=== PATIENT | male | born 1960 | race Caucasian/White ===

== ENCOUNTER 2020-06-06 08:10 | Inpatient (IN) ==
[2020-06-06] MEDS ORDERED: MoRPHine SULFATE 4 MG/ML 1 ML CARP\\VIAL IV STA ×2 (08:28→08:47)
[2020-06-06] MEDS ORDERED: ONDANSETRON INJ 2 MG/ML 2 ML VIAL IV STA (08:28)
[2020-06-06] MEDS ORDERED: SODIUM CHLORIDE 0.9% 1000ML 1,000 ML IV SCH (08:30)
--- NOTE | 2020-06-06 08:36 | Emergency Department Note ---
History of Present Illness General Chief complaint: Flank Pain Stated complaint: SEVERE ABD PAIN Time Seen by Provider: 06/06/20 08:19 History of Present Illness Maximum Pain Intensity: 9 This is a 59-year-old male that presents to the emergency department via private vehicle with complaints of "severe abdominal pain". The patient notes that around 7:15 AM he developed some discomfort to the left flank/back region. Current discomfort 7/10. It seems to wax and wane. He notes he cannot find a comfortable position. He notes a history of kidney stones about 22 years ago that passed spontaneously. No trauma or injury. No chest pain or shortness of breath. No trouble urinating. Home Medications Medication Instructions Recorded Confirmed Type aspirin [Aspirin Low Dose] 81 mg PO QAM 03/27/19 06/06/20 History atenolol 50 mg PO HS 03/27/19 06/06/20 History omega 3-hre-shp-fish oil [Fish Oil] 2 cap PO QAM 03/27/19 06/06/20 History acetaminophen [Tylenol Extra 1,000 mg PO Q6H PRN 06/06/20 06/06/20 History Strength] Allergies Allergy/AdvReac Type Severity Reaction Status Date / Time No Known Allergies Allergy Verified 06/06/20 08:45 Past Med/Surg History Medical History History of colon polyps Hypertension Surgical History History of cholecystectomy History of colonoscopy History of repair of anterior cruciate ligament of left knee History of wisdom tooth extraction Hx of vasectomy Family History Other Brain cancer Lung disease No family history of adverse response to anesthesia Social History Smoking Status: Never smoker Second Hand Exposure: Yes (mom smoked); Hx Alcohol Use: Yes Alcohol type: beer Hx Substance Use: No Preferred Language: Kiswahili Communication Ability: Effective Electrical Technician Required: No Beliefs That Will Affect Care: None Current Living Situation: Spouse Current Living Situation Comment: Lives with and son Other Information That Helps Us Care for You: No Feels Safe at Home: Yes Safety Concerns: Feels Safe At This Time Assistive Devices: None Review of Systems A total of 10 systems reviewed and were otherwise negative Physical Exam Vital Signs Vital Signs - 24 hr 06/06/20 08:16 06/06/20 08:49 06/06/20 10:34 Temperature 36.5 C Temperature Source Oral Pulse Rate 56 L Pulse Rate [Left Finger] 66 69 Respiratory Rate 20 16 16 Respiratory Effort / Characteristics Non-Labored Respiratory Depth Normal Blood Pressure 150/95 H Blood Pressure [Left Arm] 157/81 H 146/90 H Blood Pressure Mean 113 Blood Pressure Mean [Left Arm] 106 108 Pulse Oximetry 99 100 98 Oxygen Delivery Method Room Air Room Air Room Air Sepsis Recent Fever Within 48 Hours No Sepsis New/Unexplained Change in Mental Status N/A Sepsis Action Taken by Nursing No Action Required 06/06/20 11:57 Temperature Temperature Source Pulse Rate Pulse Rate [Left Finger] 91 H Respiratory Rate 18 Respiratory Effort / Characteristics Respiratory Depth Blood Pressure Blood Pressure [Left Arm] 151/95 H Blood Pressure Mean Blood Pressure Mean [Left Arm] 113 Pulse Oximetry 95 Oxygen Delivery Method Room Air Sepsis Recent Fever Within 48 Hours Sepsis New/Unexplained Change in Mental Status Sepsis Action Taken by Nursing VITAL SIGNS - Vital signs and nursing notes were reviewed. Stable and afebrile. GENERAL - 59-year-old male appearing his stated age who is in no acute distress but appears to be in pain. Communicates well with provider and answers questions appropriately. SKIN - Without rashes. LUNGS - Chest wall symmetric without accessory muscle use, intercostals retractions, or central cyanosis. Normal vesicular breath sounds CTA B/L. No wheezes, rales, or rhonchi appreciated. CARDIAC - RRR with S1/S2. No murmur, rubs, or gallops appreciated. ABDOMEN - Abdominal contour normal without pulsations or visible masses. BS normoactive all four quadrants. No tenderness, palpable masses, hepatosplenomegaly, or ascites noted. EXTREMITIES - No clubbing or peripheral cyanosis. No pretibial edema present. +5/5 strength noted in UE/LE bilaterally. NEUROLOGIC - Cranial nerves II through XII grossly intact. PSYCH - A&O,3 and cooperates fully with examiner. Pt is very pleasant and interacts well with examiner. Course Administered Medications Lactated Ringer's (Lr) 1,000 mls @ 150 mls/hr IV .Q6H40M REYNA Stop: 07/06/20 16:14 Last Admin: 06/06/20 16:34 Dose: 150 mls/hr Documented by: [id number] Discontinued Medications Sodium Chloride (Nss 1000ml) 1,000 mls @ 999 mls/hr IV .Q1H1M REYNA Stop: 06/06/20 09:30 Last Infusion: 06/06/20 10:24 Dose: 0 mls/hr Documented by: [id number] Admin: 06/06/20 08:34 Dose: 999 mls/hr Documented by: [id number] Sodium Chloride (Nss 1000ml) 1,000 mls @ 999 mls/hr IV .Q1H1M ONE Stop: 06/06/20 13:32 Last Infusion: 06/06/20 13:55 Dose: 0 mls/hr Documented by: [id number] Admin: 06/06/20 12:53 Dose: 999 mls/hr Documented by: [id number] Ketorolac Tromethamine (Ketorolac Tromethamine 15 Mg/Ml Vial) 15 mg IV NOW STA Stop: 06/06/20 08:48 Last Admin: 06/06/20 08:50 Dose: 15 mg Documented by: [id number] Ketorolac Tromethamine (Ketorolac Tromethamine 15 Mg/Ml Vial) 15 mg IV NOW STA Stop: 06/06/20 12:51 Last Admin: 06/06/20 16:03 Dose: Not Given Documented by: [id number] Morphine Sulfate (Morphine Sulfate 4 Mg/Ml 1 Ml Carp\\Vial) 4 mg IV NOW STA Stop: 06/06/20 08:29 Last Admin: 06/06/20 08:35 Dose: 4 mg Documented by: [id number] Morphine Sulfate (Morphine Sulfate 4 Mg/Ml 1 Ml Carp\\Vial) 4 mg IV NOW STA Stop: 06/06/20 08:48 Last Admin: 06/06/20 08:50 Dose: 4 mg Documented by: [id number] Morphine Sulfate (Morphine Sulfate 4 Mg/Ml 1 Ml Carp\\Vial) 4 mg IV Q30M PRN PRN Reason: pain Stop: 06/20/20 11:08 Last Admin: 06/06/20 11:23 Dose: 4 mg Documented by: [id number] Ondansetron HCl (Ondansetron Inj 2 Mg/Ml 2 Ml Vial) 4 mg IV NOW STA Stop: 06/06/20 08:29 Last Admin: 06/06/20 08:34 Dose: 4 mg Documented by: [id number] Medical Decision Making Laboratory Data Result diagrams: 06/06/20 08:25 06/06/20 08:25 Lab Results 06/06/20 06/06/20 06/06/20 Range/Units 08:25 08:25 10:01 WBC 6.43 (4.8-10.8) K/uL RBC 5.18 (4.7-6.1) M/uL Hgb 16.2 (14.0-18.0) g/dL Hct 46.7 (42-52) % MCV 90.2 (80-100) fL MCH 31.3 (25-34) pg MCHC 34.7 (32-36) g/dL RDW Std Deviation 46.1 (36.4-46.3) fL RDW Coeff of Prem 13.9 (11.5-14.5) % Plt Count 188 (130-400) K/uL MPV 9.7 (7.4-10.4) fL Immature Gran % (Auto) 0.2 % Neut % (Auto) 60.1 % Lymph % (Auto) 25.8 % Cloud % (Auto) 11.7 % Eos % (Auto) 2.0 % Baso % (Auto) 0.2 % Neut # (Auto) 3.87 (1.4-6.5) K/uL Lymph # (Auto) 1.66 (1.2-3.4) K/uL Cloud # (Auto) 0.75 H (0.11-0.59) K/uL Eos # (Auto) 0.13 (0-0.5) K/uL Baso # (Auto) 0.01 (0-0.2) K/uL Immature Gran # (Auto) 0.01 (0.00-0.02) K/uL Sodium 141 (136-145) mmol/L Potassium 4.0 (3.5-5.1) mmol/L Chloride 106 (98-107) mmol/L Carbon Dioxide 29 (21-32) mmol/L Anion Gap 6.0 (3-11) BUN 14 (7-18) mg/dl Creatinine 1.33 (0.6-1.4) mg/dl Est Cr Clr Drug Dosing 70.4 ml/min Est GFR ( Amer) 67.8 Est GFR (Non-Af Amer) 58.5 BUN/Creatinine Ratio 10.8 (10-20) Glucose 147 H (70-99) mg/dl Calcium 8.9 (8.5-10.1) mg/dl Total Bilirubin 1.2 H (0.2-1) mg/dl AST 71 H (15-37) U/L ALT 55 (12-78) U/L Alkaline Phosphatase 60 (45-117) U/L Total Protein 7.5 (6.4-8.2) gm/dl Albumin 4.0 (3.4-5.0) gm/dl Globulin 3.5 (2.5-4.0) gm/dl Albumin/Globulin Ratio 1.1 (0.9-2) Lipase 123 (73-393) U/L Urine Color Dark Yellow Urine Appearance Cloudy A (Clear) Urine pH 5.0 (4.5-7.5) Ur Specific [place] 1.023 (1.000-1.030) Urine Protein Trace H (Negative) Urine Glucose (UA) Negative (Negative) Urine Ketones Trace H (Negative) Urine Blood 3+ H (Negative) Urine Nitrite Negative (Negative) Urine Bilirubin Negative (Negative) Urine Urobilinogen Negative (Negative) Ur Leukocyte Esterase Negative (Negative) Urine WBC (Auto) 1-5 (0-5) /hpf Urine RBC (Auto) >30 H (0-4) /hpf U Hyaline Cast (Auto) 1-5 (0-5) /lpf U Epithel Cells (Auto) 5-10 H (0-5) /lpf Urine Bacteria (Auto) Negative (Negative) Ur Renal Epithelial Cell 0-5 (0-5) /lpf Urine Mucus Present A (None Prsent) Urine Yeast Not Reportable Imaging Data Radiologist's Impression: ABDOMEN AND PELVIS CT WITHOUT CONTRAST CT DOSE: 574.61 mGy.cm HISTORY: Acute low back and left-sided flank pain L back/flank pain TECHNIQUE: Multiaxial CT images of the abdomen and pelvis were performed without contrast. A dose lowering technique was utilized adhering to the principles of ALARA. COMPARISON STUDY: None. FINDINGS: Minimal subsegmental bibasilar atelectasis. There is no pneumatosis or pneumoperitoneum. Inferior cardiac chambers are unremarkable. The unenhanced spleen, pancreas, adrenal glands and liver appear unremarkable. The gallbladder appears to be surgically absent. 1.3 cm hypodensity of the anterior interpolar right kidney is suggestive of a probable cyst. 1.4 cm mildly complex cyst of the inferior pole right kidney. 2 mm nonobstructing calculus of the superior pole right kidney. Punctate nonobstructing calculus of the superior pole left kidney. There is mild to moderate left-sided hydroureteronephrosis secondary to an obstructing 5 x 4 x 7 mm calculus of the proximal left ureter at the level of the inferior endplate of L3. Prostamegaly. Partial distention of the urinary bladder. No abdominal aortic aneurysm or adenopathy. No bowel obstruction or bowel wall thickening. Terminal ileum and appendix are unremarkable. No ascites or mesenteric inflammation. Unremarkable soft tissues. No acute fracture. Transitional lumbosacral anatomy. IMPRESSION: 1. Mild to moderate left-sided hydroureteronephrosis secondary to a 5 x 4 x 7 mm calculus of the proximal left ureter. 2. Nonobstructing bilateral nephrolithiasis. 3. No bowel obstruction or bowel wall thickening. ACT 112: Negative or not required by law. The above report was generated using voice recognition software. It may contain grammatical, syntax or spelling errors. Electronically signed by: Ishaan Turk M.D. 06/06/2020 9:36 AM MDM Narrative Patient was seen and evaluated as above in room A11. Review was performed of nursing notes and vital signs. After obtaining a thorough history and physical examination the above work up was performed. He presents to us today with atraumatic left flank pain in the setting of kidney stone history x1. Patient has stable vital signs. He does appear to be in pain. IV access was established. Labs were drawn. No leukocytosis or anemia. No emergent metabolic disturbance. Mild elevation of T bili 1.2, AST 71 with glucose 147. Urinalysis reveals what is likely contaminated sample without evidence of infection. CT scan of the abdomen pelvis reveals a mild to moderate left-sided hydroureteronephrosis secondary to a 5 x 4 x 7 mm calculus of the proximal left ureter. Patient has required several rounds of IV analgesics here and did receive IV antiemetics and IV fluids. Options of care were then discussed with the patient. Patient preferred to be inpatient noting his persistence of discomfort which I believe certainly is reasonable as he has required multiple rounds of IV pain medication. Case discussed with the hospitalist. Please refer to further documentation regarding his stay. I did review the incidentals of the CT scan with the patient. While in the department, I personally r eevaluated the patient several times. I did speak with the patient's via phone after obtaining consent as she did call in to the emergency department. I was notified of this and then called her back. GCS: 15 In the evaluation and treatment of this patient the following differential diagnoses were entertained: Fracture, dislocation, subluxation, contusion, ureteral calculi, renal calculi, obstruction, UTI, pyelonephritis, among others. Impression & Plan Hydronephrosis with renal calculous obstruction, Renal colic on left side, Ureterolithiasis Discharge Plan Visit Data Chief Complaint: Flank Pain Stated Complaint: SEVERE ABD PAIN ED Provider: Юлия Pillai ED Midlevel Provider: Brice Cabrales Discharge Problem: Hydronephrosis with renal calculous obstruction, Renal colic on left side, Ureterolithiasis Patient Disposition: Admitted As Inpatient Discharge Instructions Interventions: ED Discharge Assessment Last Done: 06/06/20 16:05
[2020-06-06 08:46] LABS: Basophils # (auto) 0.01 K/uL (0-0.2); Basophils % (auto) 0.2 %; Eosinophils # (auto) 0.13 K/uL (0-0.5); Hematocrit (blood only) 46.7 % (42-52); Hemoglobin 16.2 g/dL (14.0-18.0); Immature Granulocytes # (auto) 0.01 K/uL (0.00-0.02); Immature Granulocytes % (auto) 0.2 %; Lymphocytes # (auto) 1.66 K/uL (1.2-3.4); Lymphocytes % (auto) 25.8 %; Mean Corpuscular Hemoglobin 31.3 pg (25-34); Mean Corpuscular Hgb Conc 34.7 g/dL (32-36); Mean Corpuscular Volume 90.2 fL (80-100); Mean Platelet Volume 9.7 fL (7.4-10.4); Monocytes # (auto) 0.75 K/uL (0.11-0.59); Monocytes % (auto) 11.7 %; Neutrophils # (auto) 3.87 K/uL (1.4-6.5); Neutrophils % (auto) 60.1 %; Platelet Count 188 K/uL (130-400); RDW Coefficient of Variation 13.9 % (11.5-14.5); RDW Standard Deviation 46.1 fL (36.4-46.3); Red Blood Count 5.18 M/uL (4.7-6.1); White Blood Count 6.43 K/uL (4.8-10.8)
[2020-06-06] MEDS ORDERED: KETOROLAC TROMETHAMINE 15 MG/ML VIAL IV STA ×2 (08:47→12:50)
[2020-06-06 09:28] LABS: BUN Creatinine Ratio 10.8 (10-20); Calcium 8.9 mg/dl (8.5-10.1); Creatinine Clr Calc Pharmacy 70.4 ml/min; Est GFR (African American) 67.8; Est GFR (Non-African American) 58.5
--- NOTE | 2020-06-06 09:38 | CT Scan Report ---
ABDOMEN AND PELVIS CT WITHOUT CONTRAST CT DOSE: 574.61 mGy.cm HISTORY: Acute low back and left-sided flank pain L back/flank pain TECHNIQUE: Multiaxial CT images of the abdomen and pelvis were performed without contrast. A dose lo wering technique was utilized adhering to the principles of ALARA. COMPARISON STUDY: None. FINDINGS: Minimal subsegmental bibasilar atelectasis. There is no pneumatosis or pneumoperitoneum. In ferior cardiac chambers are unremarkable. The unenhanced spleen, pancreas, adrenal glands and liver a ppear unremarkable. The gallbladder appears to be surgically absent. 1.3 cm hypodensity of the anterior interpolar right kidney is suggestive of a probable cyst. 1.4 cm m ildly complex cyst of the inferior pole right kidney. 2 mm nonobstructing calculus of the superior po le right kidney. Punctate nonobstructing calculus of the superior pole left kidney. There is mild to moderate left-sided hydroureteronephrosis secondary to an obstructing 5 x 4 x 7 mm calculus of the pr oximal left ureter at the level of the inferior endplate of L3. Prostamegaly. Partial distention of t he urinary bladder. No abdominal aortic aneurysm or adenopathy. No bowel obstruction or bowel wall thickening. Terminal ileum and appendix are unremarkable. No ascit es or mesenteric inflammation. Unremarkable soft tissues. No acute fracture. Transitional lumbosacral anatomy. IMPRESSION: 1. Mild to moderate left-sided hydroureteronephrosis secondary to a 5 x 4 x 7 mm calculus of the prox imal left ureter. 2. Nonobstructing bilateral nephrolithiasis. 3. No bowel obstruction or bowel wall thickening. ACT 112: Negative or not required by law. The above report was generated using voice recognition software. It may contain grammatical, syntax o r spelling errors. Electronically signed by: Ishaan Turk M.D. 06/06/2020 9:36 AM
[2020-06-06 09:50] LABS: Albumin Globulin Ratio 1.1 (0.9-2); Bilirubin,Total 1.2 mg/dl (0.2-1); Globulin 3.5 gm/dl (2.5-4.0); Total Protein 7.5 gm/dl (6.4-8.2)
[2020-06-06 10:34] LABS: Appearance Urine Cloudy (Clear); Bacteria Urine Automated Negative (Negative); Bilirubin Urine Negative (Negative); Blood Urine 3+ (Negative); Color Urine Dark Yellow; Glucose Urine UA Negative (Negative); Ketones Urine Trace (Negative); Leukocyte Esterase Urine Negative (Negative); Nitrite Urine Negative (Negative); Protein Urine Trace (Negative); Specific Gravity Urine 1.023 (1.000-1.030); Urobilinogen Urine Negative (Negative)
[2020-06-06 11:05] LABS: Mucus Urine Present (None Prsent); RBC Urine Automated >30 /hpf (0-4); Renal Epithelial Cells Urine 0-5 /lpf (0-5)
[2020-06-06] MEDS ORDERED: MoRPHine SULFATE 4 MG/ML 1 ML CARP\\VIAL IV PRN (11:09)
[2020-06-06] MEDS ORDERED: SODIUM CHLORIDE 0.9% 1000ML 1,000 ML IV ONE (12:32)
--- NOTE | 2020-06-06 12:36 | History & Physical Report ---
Date of Service June 06, 2020 Assessment & Plan (1) Ureterolithiasis: NSS 1L bolus given in ER, additional 1L bolus now then LR @ 150ml/hr Strain urine and send any stones for analysis (2) Renal colic on left side: Acetaminophen first-line, Toradol second line, Dilaudid third line as needed (3) Hydronephrosis with renal calculous obstruction: Clear liquid diet, if stable and no nausea can advance diet to full for dinner NPO at midnight with XR KUB in AM No indication for antibiotics at present time given urinalysis without infection, no WBC, no fevers. Consult urology - informed Dr aCrr (4) Hypertension: Continue atenolol 50 mg p.o. at bedtime Admission and Anticipated Discharge Date Admission Date: 06/06/2020 History of Present Illness Primary Care Provider: Brian Kaur Rosemarie 59 year old who presents to the ER with left-sided flank pain. Symptoms started at 7 AM today, initially with slight twinge but progressively getting worse to severity 10/10 at worst while in the emergency room. After 12 mg morphine and 15 mg Toradol he is currently pain-free for the last 20 minutes. Although he is found his pain returning after approximately 5 to 10 minutes after prior morphine. He reports associated chills with his pain earlier this morning. No objective fevers. No dysuria. He has a history of a kidney stone 22 years ago which was treated conservatively and passed spontaneously. Prior kidney stone 22 years ago. [address] on and Sunday so thinks he may have got somewhat dehydrated. Renal colic pain started this morning at 7am. Initially a twinge but quickly progressively got worse. Severity 10/10 at worse while in the ER, currently pain free after last morphine dose. In the ER CT abdomen/pelvis without IV contrast was concerning for left-sided hydroureteronephrosis secondary to a 5 x 4 x 7 mm calculus in the proximal left ureter. He is referred to medicine for admission ongoing management of renal colic pain and obstructing ureterolithiasis. Allergies Allergy/AdvReac Type Severity Reaction Status Date / Time No Known Allergies Allergy Verified 06/06/20 08:45 Home Medications Medication Instructions Recorded Confirmed Type aspirin [Aspirin Low Dose] 81 mg PO QAM 03/27/19 06/06/20 History atenolol 50 mg PO HS 03/27/19 06/06/20 History omega 8-qjo-iry-fish oil [Fish Oil] 2 cap PO QAM 03/27/19 06/06/20 History acetaminophen [Tylenol Extra 1,000 mg PO Q6H PRN 06/06/20 06/06/20 History Strength] Past Med/Surg History Medical History History of colon polyps Hypertension Surgical History History of cholecystectomy History of colonoscopy History of repair of anterior cruciate ligament of left knee History of wisdom tooth extraction Hx of vasectomy Family History Other Brain cancer Lung disease No family history of adverse response to anesthesia Social History Smoking Status: Never smoker Second Hand Exposure: Yes (mom smoked); Hx Alcohol Use: Yes Alcohol type: beer Hx Substance Use: No Preferred Language: [place] Island[place] Communication Ability: Effective Crack Off Person Required: No Beliefs That Will Affect Care: None Current Living Situation: Spouse and Family Current Living Situation Comment: Lives with and son Feels Safe at Home: Yes Assistive Devices: Glasses Review of Systems Review of Systems: All systems reviewed & are unremarkable except as noted in HPI & below Physical Exam Constitutional: well developed and well nourished; no acute distress Eyes: + anicteric sclerae; normal pupil size ENMT: external ear and nose normal, oropharynx normal Neck: trachea midline Respiratory: normal respiratory effort, lungs clear to auscultation Cardiovascular: RRR, no murmur, no edema Gastrointestinal (Abdomen): normal bowel sounds, soft, nontender, no hepatosplenomegaly Musculoskeletal: no cyanosis or clubbing, extremities motor strength 5/5 Skin: no rashes, warm and dry Neurologic: moves all extremities and awake; no focal motor deficits and not confused Psychiatric: A+Ox3, euthymic affect Genitourinary: + CVA tenderness (Left) Results & Data Results & Data ([facility]) Vital Signs (Past 12 Hours) Vital Signs Temp Pulse Pulse Resp BP BP Pulse Ox 06/06/20 11:57 91 H 18 151/95 H 95 06/06/20 10:34 69 16 146/90 H 98 06/06/20 08:49 66 16 157/81 H 100 06/06/20 08:16 36.5 C 56 L 20 150/95 H 99 Diagnostic Findings ABDOMEN AND PELVIS CT WITHOUT CONTRAST IMPRESSION: 1. Mild to moderate left-sided hydroureteronephrosis secondary to a 5 x 4 x 7 mm calculus of the proximal left ureter. 2. Nonobstructing bilateral nephrolithiasis. 3. No bowel obstruction or bowel wall thickening. Medications Administered ER medications given: NSS 1 L bolus Morphine 4 mg IV x3 Ondansetron 4 mg IV Toradol 50 mg IV Code Status & VTE Plan Code Status Full VTE Prophylaxis Plan VTE Prophylaxis will be ordered: No Reason for no VTE drug order: Treatment not indicated Reason for no VTE mechanical prophylaxis: Treatment not indicated PG Care Time/CCT Total # of Minutes Spent Total Time Spent with Patient: Total time spent is greater than 50% in coordination of care (as documented) at patient's floor/unit and/or counseling patient: Coding Level of Care Code 70765 Initial Inpt Care Lvl 2 Diagnoses Ureterolithiasis N20.1 Renal colic on left side N23 Hydronephrosis with renal calculous obstruction N13.2 Hypertension I10
[2020-06-06] MEDS ORDERED: HYDROmorphone INJ 1 MG/ML SYRINGE IV PRN (16:15)
[2020-06-06] MEDS ORDERED: ONDANSETRON INJ 2 MG/ML 2 ML VIAL IV PRN (16:15)
[2020-06-06] MEDS ORDERED: ACETAMINOPHEN 325 MG TAB PO PRN (16:15)
[2020-06-06] MEDS ORDERED: HYDROmorphone INJ 0.5 MG/0.5 ML SYR IV PRN (16:15)
[2020-06-06] MEDS: LACTATED RINGER'S 1,000 ML IV SCH ×2 (16:34→23:11)
[2020-06-06] MEDS: KETOROLAC 30 MG/ML VIAL IV PRN ×2 (17:11→23:09)
[2020-06-06] MEDS: ATENOLOL 50 MG TABLET PO SCH (20:20)
[2020-06-06] MEDS: TAMSULOSIN HCL 0.4 MG CAP PO SCH (20:20)
[2020-06-07] MEDS ORDERED: CIPROFLOXACIN / D5W 400 MG/200 ML BAG IV SCH (06:00)
[2020-06-07] MEDS: LACTATED RINGER'S 1,000 ML IV SCH ×3 (06:01→20:24)
[2020-06-07 06:32] LABS: Eosinophils # (auto) 0.04 K/uL (0-0.5); Eosinophils % (auto) 0.4 %; Hematocrit (blood only) 39.1 % (42-52); Hemoglobin 13.5 g/dL (14.0-18.0); Immature Granulocytes # (auto) 0.01 K/uL (0.00-0.02); Immature Granulocytes % (auto) 0.1 %; Lymphocytes # (auto) 1.32 K/uL (1.2-3.4); Lymphocytes % (auto) 13.8 %; Mean Corpuscular Hemoglobin 31.2 pg (25-34); Mean Corpuscular Hgb Conc 34.5 g/dL (32-36); Mean Corpuscular Volume 90.3 fL (80-100); Mean Platelet Volume 9.8 fL (7.4-10.4); Monocytes % (auto) 14.6 %; Neutrophils # (auto) 6.83 K/uL (1.4-6.5); Neutrophils % (auto) 71.1 %; Platelet Count 152 K/uL (130-400); RDW Coefficient of Variation 14.2 % (11.5-14.5); RDW Standard Deviation 47.7 fL (36.4-46.3); Red Blood Count 4.33 M/uL (4.7-6.1)
[2020-06-07 06:55] LABS: BUN Creatinine Ratio 11.4 (10-20); Calcium 7.9 mg/dl (8.5-10.1); Creatinine Clr Calc Pharmacy 67.4 ml/min; Est GFR (African American) 64.3; Est GFR (Non-African American) 55.5; Potassium 3.8 mmol/L (3.5-5.1)
[2020-06-07] MEDS ORDERED: KETOROLAC TROMETHAMINE 15 MG/ML VIAL IV PRN (07:45)
--- NOTE | 2020-06-07 07:58 | Urology Consultation ---
Date of Consultation June 07, 2020 Assessment & Plan (1) Renal colic on left side: (2) Ureterolithiasis: 59 year-old male patient, with past medical history of hypertension and elevated PSA, admitted to hospital with intractable left flank pain secondary to obstructing 7 mm left proximal ureteral calculus. -Patient afebrile. -Urine culture pending. -Keep NPO. -Continue to strain urine. -KUB this morning without visualization of stone. Findings reviewed with Dr. Carr. Given his intractable left flank pain in the context of an obstructing 7 mm left proximal ureteral calculus, will proceed with OR for cystoscopy, left retrograde pyelogram and left stent placement. Risks and benefits discussed and to be reviewed with patient by Dr. Carr. OR notified. Preoperative CXR and EKG ordered. COVID-19 negative. Will cover with IV Ciprofloxacin preoperatively. ATTENDING NOTE: Clinically evaluated, assessed, and observed patient and agree with findings as above. Plan to set up for cystoscopy and left-sided stent placement. Risks and benefits discussed at length for procedure. These include bleeding, infection, injury to surrounding tissues or organs, and risks associated with anesthesia. Patient states understanding and agrees to proceed. Will sign consent and schedule. History of Present Illness Reason for Consultation: Left ureteral stone Attending Physician: Miguel Angel Ashraf MD History of Present Illness 59 year-old male patient, with past medical history of hypertension, elevated PSA, and nephrolithiasis, presented to the emergency room last evening with complaints of left-sided flank pain that began yesterday morning around 7:00 am. Pain was not tolerable at home and was subsequently admitted to the hospital for intractable left flank pain due to proximal ureteral stone. Urology consulted due to obstructing left ureteral stone. Patient is known to [facility], follows with Dr. Higginbotham. He does have a history of stones, roughly 22 years ago - passed stone spontaneously. Chart review: Afebrile. Wbc 9.60 Hgb 13.5 Creatinine 1.39 Urinalysis >30 rbc, 1-5 wbc, negative bacteria, negative nitrates. Urine culture pending. Imaging: CT abd/pelvis - IMPRESSION: 1. Mild to moderate left-sided hydroureteronephrosis secondary to a 5 x 4 x 7 mm calculus of the proximal left ureter. 2. Nonobstructing bilateral nephrolithiasis. 3. No bowel obstruction or bowel wall thickening. Patient reports since last evening, he has been feeling better overall in regards to discomfort. Last dose of pain medication was last night at roughly 11:00 pm. Pain is mild at the time of exam. Discomfort is located in left flank area. Denies dysuria or hematuria. Denies urinary frequency/urgency. Eunice "woozy" yesterday but today denies nausea or vomiting. Denies fevers or chills. Has been out of bed without dizziness/lightheadedness. He is not currently on any anticoagulants. Has been NPO since midnight. Overall, symptoms are improved since admission. Patient re-examined with KUB results, stone not visible on x-ray. Patient's pain is now increasing. No known stone passage since admission. Nurses straining urine. Denies additional urologic concerns today. Allergies Allergy/AdvReac Type Severity Reaction Status Date / Time No Known Allergies Allergy Verified 06/06/20 08:45 Home Medications Medication Instructions Recorded Confirmed Type aspirin [Aspirin Low Dose] 81 mg PO QAM 03/27/19 06/06/20 History atenolol 50 mg PO HS 03/27/19 06/06/20 History omega 2-tat-itj-fish oil [Fish Oil] 2 cap PO QAM 03/27/19 06/06/20 History acetaminophen [Tylenol Extra 1,000 mg PO Q6H PRN 06/06/20 06/06/20 History Strength] Patient History Medical History History of colon polyps Hypertension Surgical History History of cholecystectomy History of colonoscopy History of repair of anterior cruciate ligament of left knee History of wisdom tooth extraction Hx of vasectomy Family History Other Brain cancer Lung disease No family history of adverse response to anesthesia Social History Smoking Status: Never smoker Second Hand Exposure: Yes (mom smoked); Hx Alcohol Use: Yes Alcohol type: beer Hx Substance Use: No Preferred Language: Citizen Of [place] Communication Ability: Effective Skelp Processor Required: No Beliefs That Will Affect Care: None Current Living Situation: Spouse Current Living Situation Comment: Lives with and son Other Information That Helps Us Care for You: No Feels Safe at Home: Yes Safety Concerns: Feels Safe At This Time Assistive Devices: None Review of Systems Constitutional: as per Subjective / HPI; no fever and no chills Eyes: no problem reported Ear, Nose, Mouth, Throat: no dizziness Respiratory: no cough and no dyspnea Cardiovascular: no chest pain and no edema Gastrointestinal: as per Subjective / HPI Genitourinary: + as per Subjective / HPI Musculoskeletal: as per Subjective / HPI Neurologic: no dizziness Endocrine: no fatigue Hematologic / Lymphatic: no easy bleeding and no easy bruising Physical Exam Constitutional: well developed and well nourished; no acute distress and not ill appearing ENMT: Ears: no external ear abnormality Nose: no external nose abnormality Neck: normal visual inspection and trachea midline Respiratory: normal respiratory effort and able to speak in complete sentences; no respiratory distress and no audible wheezes Cardiovascular: Extremities: no calf tenderness and no edema Gastrointestinal (Abdomen): Inspection/Auscultation: abdomen normal to inspection; abdomen not distended Percussion/Palpation: + abdomen tender (Mild tenderness to left lower quadrant. ) and abdomen soft; no guarding Musculoskeletal: Moves all extremities without difficulty. Skin: No visible rashes, lesions, or wounds noted. Neurologic: moves all extremities and awake Psychiatric: Orientation: alert, oriented x 3 and cooperative Affect: euthymic affect Genitourinary: no CVA tenderness Results & Data ([facility]) Vital Signs (Past 12 Hours) Vital Signs Temp Pulse Resp BP Pulse Ox 06/07/20 07:54 37 C 79 19 147/83 H 94 06/06/20 23:31 37 C 70 19 145/78 H 92 06/06/20 20:17 70 152/86 H 94 PG Care Time/CCT Total # of Minutes Spent Total Time Spent with Patient: Total time spent is greater than 50% in coordination of care (as documented) at patient's floor/unit and/or counseling patient: Coding Level of Care Code 15137 Inpt Consult Level 4 Diagnoses Renal colic on left side N23 Ureterolithiasis N20.1
--- NOTE | 2020-06-07 09:07 | XRay Report ---
KUB HISTORY: Follow up study in a patient with left-sided flank pain left proximal ureteral stone COMPARISON: CT abdomen and pelvis 06/06/2020. FINDINGS: The bowel gas pattern is non-obstructive. There is no organomegaly. Renal shadows are part ially obscured by bowel gas. The previously noted punctate bilateral nephrolithiasis are not definiti vely seen. Additionally, the 7 mm calculus of the left ureter at the level of L4-L5 is not definitive ly seen. Numerous pelvic basin calcifications suggestive of phleboliths. No pneumoperitoneum or pneum atosis. No fracture. IMPRESSION: 1. Limited exam secondary to obscuring bowel gas. 2. The previously described punctate bilateral nephrolithiasis and the 7 mm left ureteral calculus ar e not identified. ACT 112: Negative or not required by law. The above report was generated using voice recognition software. It may contain grammatical, syntax o r spelling errors. Electronically signed by: Ishaan Turk M.D. 06/07/2020 9:05 AM
[2020-06-07] MEDS: ASPIRIN 81 MG ECTAB PO SCH (10:11)
[2020-06-07] MEDS: OMEGA-3 (PURIFIED FISH OIL) 1 GM CAP PO SCH (10:11)
--- NOTE | 2020-06-07 11:04 | XRay Report ---
XR chest 2V PA/lateral HISTORY: 59 years-old Male preop preoperative exam. No acute chest complaints COMPARISON: CT abdomen and pelvis of same day TECHNIQUE: PA and lateral views of the chest FINDINGS: Cardiomediastinal and hilar silhouettes are within normal limits. Or minimal linear subsegmental righ t midlung and left lung base atelectasis/scarring. There is no pneumothorax, pleural effusion, airspa ce consolidation or overt pulmonary edema. Degenerative changes of the shoulders and spine. Mild conv ex right curvature of the midthoracic spine. IMPRESSION: No acute process. ACT 112: Negative or not required by law. The above report was generated using voice recognition software. It may contain grammatical, syntax o r spelling errors. Electronically signed by: Ishaan Turk M.D. 06/07/2020 11:02 AM
--- NOTE | 2020-06-07 12:22 | Electrocardiogram Report ---
Test Reason : Blood Pressure : / mmHG Vent. Rate : 070 BPM Atrial Rate : 070 BPM P-R Int : 168 ms QRS Dur : 096 ms QT Int : 380 ms P-R-T Axes : 041 008 006 degrees QTc Int : 410 ms Normal sinus rhythm Normal ECG No previous ECGs available Confirmed by Ash Aiken ([id number]) on 06/07/2020 12:21:39 PM Referred By: REFERRED SELF Confirmed By:Ash Aiken
[2020-06-07] MEDS ORDERED: MIDAZOLAM HCL 1 MG/ML 2ML VIAL ONE (12:24)
--- NOTE | 2020-06-07 13:22 | Hospitalist Progress Note ---
Date of Service June 07, 2020 Assessment & Plan Admission and Anticipated Discharge Date Admission Date: June 06, 2020 59 y/o M w/ pMHx. of HTN, Hx. nephrolithiasis 22 years prior presents with left sided flank pain found to have left hydronephrosis and a left proximal ureteral calculi measuring 5 X 4 X 7 mm. Ureterolithiasis: - initially given 2L bolus followed by LR @ 150ml/hr - Strain urine and send any stones for analysis - Urology consulted - KUB w/o stone identified this AM - plan for retrograde pyelogram and left stent placement today - pretreated with Ciprofloxacin Renal colic on left side: - Acetaminophen first-line, Toradol second line, Dilaudid third line as needed Hydronephrosis with renal calculous obstruction: - NPO prior to procedure, can advance diet as tolerated after procedure Hypertension: - Continue Atenolol 50 mg p.o. at bedtime DVT: ambulation Code: full Diet: NPO COVID: negative 06/06 Supervising Physician Co-Signing Physician Notes Resident Physician Supervision Note: I independently interviewed and examined the patient and verified the farrar history and physical, reviewed labs and image studies, discussed the case with the resident Dr. Rousseau and agree with the findings and care plan. Subjective Doing, "pretty good" this morning. He had some pain overnight that has resolved. He noted some dark yellow urine output. Review of Systems Review of Systems: Constitutional: denies fever, chills Cardiac: denies chest pain, palpitations, syncope, orthopnea Abd.: denies nausea, vomiting, constipation, diarrhea Pulm.: denies cough, shortness of breath, sputum production Neuro: denies headache : denies increased frequency, urgency, dysuria Physical Exam Constitutional: well developed and well nourished; no acute distress Eyes: PERRL, conjunctivae normal, anicteric sclerae ENMT: external ear and nose normal, oropharynx normal Neck: normal visual inspection Respiratory: normal respiratory effort, lungs clear to auscultation Cardiovascular: RRR, no murmur, no edema Gastrointestinal (Abdomen): no pain, soft, no guarding, CVA negative Results & Data Results & Data ([facility]) Vital Signs (Past 12 Hours) Vital Signs Temp Pulse Resp BP Pulse Ox 06/07/20 07:54 37 C 79 19 147/83 H 94 CBC Results Results Complete Blood Count Results: RBC 4.33 M/uL (4.7-6.1) L 06/07/20 WBC 9.60 K/uL (4.8-10.8) 06/07/20 Hgb 13.5 g/dL (14.0-18.0) L 06/07/20 Hct 39.1 % (42-52) L 06/07/20 Plt Count 152 K/uL (130-400) 06/07/20 Chemistry (BMP) Results BMP Results: Sodium 141 mmol/L (136-145) 06/07/20 Potassium 3.8 mmol/L (3.5-5.1) 06/07/20 Chloride 108 mmol/L (98-107) H 06/07/20 BUN 16 mg/dl (7-18) 06/07/20 Creatinine 1.39 mg/dl (0.6-1.4) 06/07/20 Glucose 102 mg/dl (70-99) H 06/07/20 Resident Activity Tracking Resident Involvement: Resident Care Provided Care Provided: [facility]
--- NOTE | 2020-06-07 16:03 | Anesthesiology Consultation ---
Date of Service June 07, 2020 Assessment & Plan Chart Review Chart Review: Acceptable Risk for Surgery Consults Requested none History Surgery Operation Date: 06/07/20 15:05 Proposed Procedures p Cystoscopy, Left Retrograde and Stent Placement - Cristian Carr DO Height/Weight Height: 6 ft 2 in Weight: 92.1 kg Allergies Allergy/AdvReac Type Severity Reaction Status Date / Time No Known Allergies Allergy Verified 06/06/20 08:45 Medications Home Medications Medication Instructions Recorded Confirmed Last Taken aspirin [Aspirin Low Dose] 81 mg PO QAM 03/27/19 06/06/20 06/05/20 atenolol 50 mg PO HS 03/27/19 06/06/20 06/05/20 omega 8-cwt-qee-fish oil [Fish Oil] 2 cap PO QAM 03/27/19 06/06/20 06/05/20 acetaminophen [Tylenol Extra 1,000 mg PO Q6H PRN 06/06/20 06/06/20 06/06/20 07:30 Strength] Active Medications Generic Name Dose Route Start Last Admin Trade Name Freq PRN Reason Stop Dose Admin Aspirin 81 mg 06/07/20 09:00 06/07/20 10:11 Aspirin 81 Mg Ectab PO 07/07/20 08:59 Not Given QAM REYNA Atenolol 50 mg 06/06/20 21:00 06/06/20 20:20 Atenolol 50 Mg Tablet PO 07/06/20 20:59 50 mg HS REYNA Administration Fish Oil 2 gm 06/07/20 09:00 06/07/20 10:11 [place]-3 (Purified Fish Oil) 1 Gm Cap PO 07/07/20 08:59 Not Given QAM REYNA Hydromorphone HCl 1 mg 06/06/20 16:15 06/06/20 18:37 Hydromorphone Inj 1 Mg/Ml Syringe IV 06/20/20 16:14 1 mg Q2H PRN Administration Pain (6-10) Lactated Ringer's 1,000 mls @ 150 mls/hr 06/06/20 16:15 06/07/20 15:22 Lr IV 07/06/20 16:14 0 mls/hr .Q6H40M REYNA Infusion Ketorolac Tromethamine 15 mg 06/07/20 07:45 06/07/20 10:12 Ketorolac Tromethamine 15 Mg/Ml Vial IV 06/11/20 16:14 15 mg Q6H PRN Administration Pain Tamsulosin HCl 0.4 mg 06/06/20 21:00 06/06/20 20:20 Tamsulosin Hcl 0.4 Mg Cap PO 07/06/20 20:59 0.4 mg HS REYNA Administration NPO Date Last Intake of Fluids: 06/07/20 Time Last Intake of Fluids: 00:00 Date Last Intake of Solids: 06/07/20 Time Last Intake of Solids: 00:00 Past Medical History Medical History History of colon polyps Hypertension Past Family History Family History Other Brain cancer Lung disease No family history of adverse response to anesthesia Past Surgical History Surgical History History of cholecystectomy History of colonoscopy History of repair of anterior cruciate ligament of left knee History of wisdom tooth extraction Hx of vasectomy Social History Smoking Status: Never smoker Hx Alcohol Use: Yes Alcohol type: beer alcohol intake frequency: a few times a month Hx Substance Use: No substance use type: does not use Physical Exam Vital Signs Last Vital Signs Temp 37.3 C 06/07/20 15:27 Pulse 77 06/07/20 15:27 Resp 16 06/07/20 15:27 BP 143/88 H 06/07/20 15:27 Pulse Ox 96 06/07/20 15:27 Testing Laboratory Results 06/07/20 06:12 06/07/20 06:12 Urine Color Dark Yellow 06/06/20 10:01 Urine Appearance Cloudy (Clear) A 06/06/20 10:01 Urine pH 5.0 (4.5-7.5) 06/06/20 10:01 Ur Specific [place] 1.023 (1.000-1.030) 06/06/20 10:01 Urine Protein Trace (Negative) H 06/06/20 10:01 Urine Glucose (UA) Negative (Negative) 06/06/20 10:01 Urine Ketones Trace (Negative) H 06/06/20 10:01 Urine Nitrite Negative (Negative) 06/06/20 10:01 Ur Leukocyte Esterase Negative (Negative) 06/06/20 10:01 Urine WBC (Auto) 1-5 /hpf (0-5) 06/06/20 10:01 Urine RBC (Auto) >30 /hpf (0-4) H 06/06/20 10:01 U Hyaline Cast (Auto) 1-5 /lpf (0-5) 06/06/20 10:01 U Epithel Cells (Auto) 5-10 /lpf (0-5) H 06/06/20 10:01 Urine Bacteria (Auto) Negative (Negative) 06/06/20 10:01 06/06/20 10:01 Urine Culture - Preliminary Urine,Clean Catch Pin-point growth present, reincubating.
[2020-06-07] MEDS ORDERED: ATROPINE SULFATE 0.1 MG/ML 10ML SYR IV PRN (16:04)
[2020-06-07] MEDS ORDERED: ePHEDrine sulfate 50 MG/ML AMP IV PRN (16:04)
[2020-06-07] MEDS ORDERED: METOCLOPRAMIDE HCL INJ 5 MG/ML 2 ML VIAL IV PRN (16:04)
[2020-06-07] MEDS ORDERED: HYDROmorphone INJ 2 MG/ML SYR/VIAL IV PRN (16:04)
[2020-06-07] MEDS ORDERED: PROMETHAZINE HCL 12.5 MG in SODIUM CHLORIDE 0.9% 50 ML IV PRN (16:04)
[2020-06-07] MEDS ORDERED: ONDANSETRON INJ 2 MG/ML 2 ML VIAL IV PRN (16:04)
[2020-06-07] MEDS ORDERED: fentaNYL citrate 100 MCG/2 ML VIAL IV PRN (16:04)
[2020-06-07] MEDS ORDERED: PROPOFOL IV EMULSION 10 MG/ML 20 ML VIAL IV ONE (16:08)
[2020-06-07] MEDS ORDERED: ONDANSETRON INJ 2 MG/ML 2 ML VIAL ONE (16:08)
[2020-06-07] MEDS ORDERED: LIDOCAINE HCL 2% 2 ML VIAL/AMP(20MG/ML) INFIL ONE (16:08)
[2020-06-07] MEDS ORDERED: fentaNYL citrate 100 MCG/2 ML VIAL ONE (16:08)
[2020-06-07] MEDS ORDERED: IOTHALAMATE MEGLUMINE II 17.2% 250 ML VIAL INSTIL ONE (16:34)
--- NOTE | 2020-06-07 16:36 | Operative Report ---
PG Post Operative Report Pre & Post Diagnosis Operation Date: 06/07/20 15:05 Pre-Op Diagnosis: Renal colic on left side, Ureterolithiasis Post-Op Diagnosis: Renal colic on left side, Ureterolithiasis I identified the patient and participated in the time-out.: Yes Procedure Operation Date: 06/07/20 15:05 Actual Procedures p Cystoscopy, Retrograde Pyelogram and Left Stent Placement(Left) - Cristian Carr DO Surgeon Cristian Carr, II, DO Audio/Video Technician None Estimated Blood Loss 1 Findings Consistent with Post-Op Diagnosis Stent placed in good position. Specimens None Drains 6 Fr Multilength Anesthesia Type MAC Complications none Disposition Disposition: Recovery Room Indications Patient with obstruction. Risks and benefits discussed at length. Description of Procedure Patient was consented and brought back to the operating room. Patient was placed under anesthesia in the supine position and moved to the dorsal lithotomy position. Patient was prepped and draped in the regular sterile fashion. A time out was completed. A 30degree Cystoscope was placed into the bladder and the entire bladder was examined. The UO's were identified. The UO was cannulized with a catheter and a retrograde pyelogram was completed. A wire was then placed. With the wire in place, a 6 Fr Double J stent was placed. It was confirmed with fluoroscopy. With the stent in place, the bladder was emptied. The scope was removed. The patient was cleaned, aroused from anesthesia, and transferred to the pacu in stable condition having tolerated the procedure well with no complications. I was present and participated in all aspects of the procedure. The patient will be monitored in the PACU until transferred. I attest to the content of the Intraoperative Record and any orders documented therein. Any exceptions are noted below.
--- NOTE | 2020-06-07 16:57 | Anesthesiology Progress Note ---
Date of Service June 07, 2020 Anesthesia Post Procedure Vital Signs Vital Signs: Temp Pulse Pulse Resp BP Pulse Ox 06/07/20 16:50 75 14 114/74 94 06/07/20 16:45 37.2 C 83 20 111/71 95 06/07/20 15:27 37.3 C 77 16 143/88 H 96 06/07/20 07:54 37 C 79 19 147/83 H 94 06/06/20 23:31 37 C 70 19 145/78 H 92 06/06/20 20:17 70 152/86 H 94 Pain Intensity Left Flank: Pain Intensity: 1 Transfer of Care Handoff Completed per policy Notes Mental Status: alert / awake / arousable and participated in evaluation Patient Amnestic to Procedure: Yes Nausea / Vomiting: adequately controlled Pain: adequately controlled Airway Patency, RR, SpO2: stable & adequate BP & HR: stable & adequate Hydration State: stable & adequate Anesthetic Complications: no major complications apparent
--- NOTE | 2020-06-07 17:08 | Fluoroscopy Report ---
FL retrograde includes kub CLINICAL HISTORY: LEFT SIDE LASER RETROGRADE COMPARISON STUDY: CT scan dated 06/06/2020 FLUOROSCOPY TIME: 38 seconds. NUMBER OF FLUOROSCOPIC IMAGES: 3 FINDINGS: 3 intraprocedural fluoroscopic spot images are provided for interpretation. These demonstra te retrograde catheterization of the left ureter. Image #1 demonstrates a guidewire and catheter with in the left renal pelvis. The pelvis is opacified with contrast. There are no definite filling defect s. The final 2 images demonstrate placement of a left-sided double pigtail nephroureteral stent. IMPRESSION: Fluoroscopic spot images performed during a retrograde study with placement of a double pigtail left sided nephroureteral stent. ACT 112: Negative or not required by law. Electronically signed by: Marc Moraes M.D. 06/07/2020 5:07 PM
[2020-06-07] MEDS: TAMSULOSIN HCL 0.4 MG CAP PO SCH (20:24)
[2020-06-07] MEDS: ATENOLOL 50 MG TABLET PO SCH (20:25)
[2020-06-08] MEDS: LACTATED RINGER'S 1,000 ML IV SCH ×2 (01:37→08:27)
--- NOTE | 2020-06-08 08:05 | Discharge Summary ---
Date of Service June 08, 2020 Admission HPI Per Admitting Provider Vincent Houston 59 year old who presents to the ER with left-sided flank pain. Symptoms started at 7 AM today, initially with slight twinge but progressively getting worse to severity 10/10 at worst while in the emergency room. After 12 mg morphine and 15 mg Toradol he is currently pain-free for the last 20 minutes. Although he is found his pain returning after approximately 5 to 10 minutes after prior morphine. He reports associated chills with his pain earlier this morning. No objective fevers. No dysuria. He has a history of a kidney stone 22 years ago which was treated conservatively and passed spontaneously. Prior kidney stone 22 years ago. [address] on and Sunday so thinks he may have got somewhat dehydrated. Renal colic pain started this morning at 7am. Initially a twinge but quickly progressively got worse. Severity 10/10 at worse while in the ER, currently pain free after last morphine dose. In the ER CT abdomen/pelvis without IV contrast was concerning for left-sided hydroureteronephrosis secondary to a 5 x 4 x 7 mm calculus in the proximal left ureter. He is referred to medicine for admission ongoing management of renal colic pain and obstructing ureterolithiasis. Admission Exam Per Admitting Provider Constitutional: well developed and well nourished; no acute distress Eyes: + anicteric sclerae; normal pupil size ENMT: external ear and nose normal, oropharynx normal Neck: trachea midline Respiratory: normal respiratory effort, lungs clear to auscultation Cardiovascular: RRR, no murmur, no edema Gastrointestinal (Abdomen): normal bowel sounds, soft, nontender, no hepatosplenomegaly Musculoskeletal: no cyanosis or clubbing, extremities motor strength 5/5 Skin: no rashes, warm and dry Neurologic: moves all extremities and awake; no focal motor deficits and not confused Psychiatric: A+Ox3, euthymic affect Genitourinary: + CVA tenderness (Left) Principal Diagnosis hydronephrosis nephrolithiasis HTN Discharge Exam Constitutional well developed and well nourished; no acute distress Eyes PERRL, conjunctivae normal, anicteric sclerae ENMT external ear and nose normal, oropharynx normal Neck normal visual inspection Respiratory normal respiratory effort, lungs clear to auscultation Cardiovascular RRR, no murmur, no edema Gastrointestinal (Abdomen) soft, nTTP, no guarding, CVA negative Discharge Data Allergies Allergy/AdvReac Type Severity Reaction Status Date / Time No Known Allergies Allergy Verified 06/06/20 08:45 Consultations 06/06/20 12:36 Consult Urology Routine Procedures Performed Operation Date: 06/07/20 15:05 Actual Procedures p and Left Stent Placement(Left) - Cristian Carr DO s Cystoscopy, Retrograde Pyelogram - Cristian Carr DO Ordered Studies 06/06/20 08:28 CT abd pelvis wo con Stat 06/07/20 16:00 FL retrograde includes kub Routine Hospital Course (1) Hydronephrosis with renal calculous obstruction: 59 y/o M with h/o urinary stone presented with left flank pain noted to have hydronephrosis and left proximal ureteral stone (1) Ureterolithiasis with hydronephrosis: - Received NSS 1L bolus given in ER, additional 1L bolus on admission. - Kept on meds to control pain. - Underwent cystoscopy, left-sided ureteral stent placement. -No sign of infection. -Urology Recommended - home with pain control, PRN Oxybutynin, and Tamsulosin. -Continue to strain urine. - outpatient follow up (2) Hypertension: Continued atenolol 50 mg p.o. at bedtime Total Time Total Time Spent Total Time Spent (In Minutes): see attending attestation Discharge Plan Discharge Items Patient Disposition: Home - Self-Care Reason For Visit: LEFT OBSTRUCTING URETEROLITHIASIS Discharge Diagnosis: hydronephrosis w/ calculi s/p retrograde pyelogram and stent placement Activity: Per Instructions section Non-emergency contact: Primary Care Provider and Urologist Call non-emergency contact if: you have a fever Follow-up/Referrals: Cristian Carr DO [Physician] - 06/16/20 9:00 am Brian Bingham [Primary Care Provider] - 06/14/20 3:30 pm (E-VISIT THROUGH YOUR PORTAL.) Diet: Regular Addtl Attending Provider Instructions: Kidney stone You were admitted into the hospital for a side pain and were found to have a kidney stone. The urologist saw you and placed a stent in your ureter. You will need to follow up with the urologist in regard to the stent. You should also follow up with your primary care doctor in regard to your hospital admission. If you have fevers, chills, worsening pain or bleeding call or come in to be evaluated. Follow up You will need follow up with urology in 1-2 weeks for procedure. Addtl Angle Dozer Operator Provider Instructions: Please take all medications as prescribed. We will contact you for an appointment with the urology team. Please call our office at [phone] with any questions, concerns or need to reschedule appointments for any reason. We are happy to assist you. While you have a ureteral stent in place: Some discomfort is normal. Certain movements may trigger pain or a feeling that you need to urinate. You may also feel mild soreness or pressure before or during urination. These symptoms should go away a few days after the stent is removed. Your urine may be slightly pink or red. This is due to bleeding caused by minor irritation from the stent. This may happen on and off while you have the stent, it is not harmful and is to be expected. Medication to help minimize discomfort or bladder spasms, or to prevent infection may be prescribed. Take this as directed. Drink plenty of fluids to help flush out your urinary tract. If you go home with a catheter, wash with soapy water and a fresh washcloth twice daily. We recommend mild bar soap such as Dial or Dove. How long will you need a stent? The stent is often taken out after the blockage in the ureter is treated or the ureter has healed. This may take 1-2 weeks, or longer. If a stent is needed for a longer period of time, it may need to be exchanged every few months. Likely prior to your followup appointment you will be asked to get an X-ray, please complete this the night before or morning of your appointment. When to call [facility] at [phone]: Your urine contains heavy blood clots You are constantly leaking urine Fever of 101F or higher, chills, nausea, or vomiting Your pain is not relieved with medication The end of the stent comes out of your urethra Pending Studies at Discharge: Yes Studies:: urine culture Stand-Alone Forms: My TAPP, Smoking Cessation Medications and DC Order Prescriptions: New oxybutynin chloride 5 mg tablet 5 mg PO BID PRN (Reason: bladder spasms) Qty: 20 RF: 0 tamsulosin 0.4 mg capsule 0.4 mg PO HS Qty: 20 RF: 0 Continued aspirin [Aspirin Low Dose] 81 mg Tablet,Delayed Release (Dr/Ec) 81 mg PO QAM RF: 0 atenolol 50 mg Tablet 50 mg PO HS RF: 0 omega 7-fgb-pig-fish oil [Fish Oil] 1,000 mg (120 mg-180 mg) Capsule 2 cap PO QAM RF: 0 acetaminophen 500 mg Capsule 1,000 mg PO Q6H PRN (Reason: Pain) RF: 0 Discharge Orders: Discharge Order (Routine); Ordered 06/08/20 Ordered By: Lennox Puente/Other Patient Handouts: Understanding Kidney Stones, Preventing Kidney Stones Admission Data Admit Date/Time: 06/06/20 12:43 Attending Provider: Zenia Block Admit Provider: Miguel Angel Ashraf Primary Care Provider: Brian Bingham Other Providers: Miguel Angel Ashraf ; Cristian Carr Other Interventions: Discharge Summary Assessment (RN) Last Done: 06/08/20 07:25 Supervising Physician Co-Signing Physician Notes Resident Physician Supervision Note: I independently interviewed and examined the patient and verified the farrar history and physical, reviewed labs and image studies, discussed the case with the resident Dr. Rousseau and agree with the findings and care plan. Resident Activity Tracking Resident Involvement: Resident Care Provided Care Provided: Adult [facility] CBC Results Results Complete Blood Count Results: RBC 4.37 M/uL (4.7-6.1) L 06/08/20 WBC 7.27 K/uL (4.8-10.8) 06/08/20 Hgb 13.6 g/dL (14.0-18.0) L 06/08/20 Hct 39.5 % (42-52) L 06/08/20 Plt Count 148 K/uL (130-400) 06/08/20 Chemistry (BMP) Results BMP Results: Sodium 142 mmol/L (136-145) 06/08/20 Potassium 3.6 mmol/L (3.5-5.1) 06/08/20 Chloride 107 mmol/L (98-107) 06/08/20 BUN 13 mg/dl (7-18) 06/08/20 Creatinine 1.05 mg/dl (0.6-1.4) 06/08/20 Glucose 84 mg/dl (70-99) 06/08/20
[2020-06-08 08:13] LABS: Basophils # (auto) 0.01 K/uL (0-0.2); Basophils % (auto) 0.1 %; Eosinophils # (auto) 0.09 K/uL (0-0.5); Eosinophils % (auto) 1.2 %; Hematocrit (blood only) 39.5 % (42-52); Hemoglobin 13.6 g/dL (14.0-18.0); Immature Granulocytes # (auto) 0.01 K/uL (0.00-0.02); Immature Granulocytes % (auto) 0.1 %; Lymphocytes # (auto) 1.32 K/uL (1.2-3.4); Lymphocytes % (auto) 18.2 %; Mean Corpuscular Hemoglobin 31.1 pg (25-34); Mean Corpuscular Hgb Conc 34.4 g/dL (32-36); Mean Corpuscular Volume 90.4 fL (80-100); Mean Platelet Volume 9.8 fL (7.4-10.4); Monocytes # (auto) 1.05 K/uL (0.11-0.59); Monocytes % (auto) 14.4 %; Neutrophils # (auto) 4.79 K/uL (1.4-6.5); Platelet Count 148 K/uL (130-400); RDW Standard Deviation 46.2 fL (36.4-46.3); Red Blood Count 4.37 M/uL (4.7-6.1); White Blood Count 7.27 K/uL (4.8-10.8)
[2020-06-08] MEDS: OMEGA-3 (PURIFIED FISH OIL) 1 GM CAP PO SCH (08:27)
[2020-06-08] MEDS: ASPIRIN 81 MG ECTAB PO SCH (08:27)
[2020-06-08 08:48] LABS: BUN Creatinine Ratio 12.3 (10-20); Calcium 8.6 mg/dl (8.5-10.1); Creatinine Clr Calc Pharmacy 89.2 ml/min; Est GFR (African American) 90.3; Est GFR (Non-African American) 77.9; Potassium 3.6 mmol/L (3.5-5.1)
--- NOTE | 2020-06-08 09:40 | Urology Progress Note ---
Date of Service June 08, 2020 Assessment & Plan (1) Renal colic on left side: (2) Ureterolithiasis: 59 year-old male patient, with past medical history of hypertension and elevated PSA, admitted to hospital with intractable left flank pain secondary to obstructing 7 mm left proximal ureteral calculus. -POD#1 emergent cystoscopy, left-sided ureteral stent placement. -Clinically progressing, now without pain. -Patient afebrile. -Okay to discharge home from perspective. -Recommend home with pain control, PRN Oxybutynin, and Tamsulosin. Side effects of medication discussed. -Continue to strain urine. -Expected clinical course reviewed with patient, all questions answered. -Will arrange outpatient follow-up with urology service to discuss definitive stone management. Admission and Anticipated Discharge Date Admission Date: June 06, 2020 Subjective POD #1 cystoscopy, retrograde pyelogram and left stent placement. He reports he is feeling better overall. Currently denies pain. Denies fevers or chills. Denies nausea or vomiting. Did note hematuria postoperatively however now states urine is clear yellow. Reports urinary frequency, denies urgency. Denies dysuria. Has been ambulating without dizziness/lightheadedness. Reports he is ready/anxious to go home. Chart review: Afebrile Wbc 7.27 Hgb 13.6 Creatinine 1.05 Urine culture 30,000 cfu Diptheroids. Denies additional urologic concerns today. Review of Systems Constitutional: as per Subjective / HPI; no fever and no chills Gastrointestinal: as per Subjective / HPI; no nausea and no vomiting Genitourinary: + as per Subjective / HPI Neurologic: as per Subjective / HPI Physical Exam Constitutional: well developed and well nourished; no acute distress and not ill appearing Respiratory: normal respiratory effort and able to speak in complete sentences; no respiratory distress and no audible wheezes Gastrointestinal (Abdomen): Inspection/Auscultation: abdomen normal to inspection; abdomen not distended Psychiatric: Orientation: alert, oriented x 3 and cooperative Affect: euthymic affect Genitourinary: no CVA tenderness Results & Data ([facility]) Vital Signs (Past 12 Hours) Vital Signs Temp Pulse Resp BP Pulse Ox 06/08/20 07:20 36.8 C 79 18 128/78 94 06/08/20 03:17 37.0 C 71 15 112/70 94 06/07/20 23:40 36.9 C 69 15 124/76 94 PG Care Time/CCT Total # of Minutes Spent Total Time Spent with Patient: Total time spent is greater than 50% in coordination of care (as documented) at patient's floor/unit and/or counseling patient: Coding Level of Care Code 65855 Subseq Hosp Care Lvl 2 Diagnoses Renal colic on left side N23 Ureterolithiasis N20.1
== END 2020-06-08 10:30 | disposition home or self-care (01) | DRG 661 ==
LOC: ED 08:10 → 3W 12:43 → SUATTDRO 12:43 → 3W 16:05